=== PATIENT | male | born 1980 | race Caucasian/White ===

== ENCOUNTER 2020-05-18 07:33 | Emergency (ER) | payer BC ==
[2020-05-18 07:42] VITALS: BP 124/82; PULSE 66; RESP 18; TEMP 97.8
[2020-05-18] MEDS ORDERED: LIDOCAINE 1% INJ 10MG/ML (20 ML MDV) SQ ONE (07:53)
--- NOTE | 2020-05-18 07:55 | ED ---
Skin/Abscess/FB HPI - General Chief complaint: Skin/Abscess/Foreign Body Stated complaint: Swollen Gland Time Seen by Provider: 05/18/20 07:44 Source: patient, RN notes reviewed Mode of arrival: ambulatory Limitations: no limitations - History of Present Illness Initial comments: This a 40-year-old male presents emergency Department with chief complaint of swelling on his buttocks. Patient states he thought he had a hemorrhoid but states this was much higher and states has become more painful. He states he cannot sit on the area. Patient denies fevers chills no drainage. - Related Data Previous Rx's Medication Instructions Recorded Clindamycin HCl 300 mg PO Q6HR #40 cap 05/18/20 Ibuprofen [Motrin] 600 mg PO Q8HR PRN #20 tab 05/18/20 Allergies Allergy/AdvReac Type Severity Reaction Status Date / Time ciprofloxacin [From Cipro] Allergy Nausea & Verified 05/18/20 07:43 Vomiting sulfamethoxazole Allergy Vomiting Verified 05/18/20 07:43 [From Bactrim] trimethoprim [From Bactrim] Allergy Vomiting Verified 05/18/20 07:43 Review of Systems ROS Statement: Those systems with pertinent positive or pertinent negative responses have been documented in the HPI. ROS Other: All systems not noted in ROS Statement are negative. Past Medical History Past Medical History: No Reported History History of Any Multi-Drug Resistant Organisms: MRSA Past Surgical History: No Surgical Hx Reported Past Psychological History: Anxiety Smoking Status: Former smoker Past Alcohol Use History: None Reported Past Drug Use History: None Reported General Exam Limitations: no limitations General appearance: alert, in no apparent distress Head exam: Present: atraumatic, normocephalic, normal inspection Eye exam: Present: normal appearance, PERRL, EOMI. Absent: scleral icterus, conjunctival injection, periorbital swelling Respiratory exam: Present: normal lung sounds bilaterally. Absent: respiratory distress, wheezes, rales, rhonchi, stridor Cardiovascular Exam: Present: regular rate, normal rhythm, normal heart sounds. Absent: systolic murmur, diastolic murmur, rubs, gallop, clicks GI/Abdominal exam: Present: soft, normal bowel sounds. Absent: distended, tenderness, guarding, rebound, rigid Skin exam: Present: warm, dry, intact, normal color, other (With a cleft buttocks there is approximately 2 cm abscess firm minimal fluctuation mild erythema). Absent: rash Course Vital Signs 05/18/20 07:34 Temperature 97.8 F Pulse Rate 66 Respiratory 18 Rate Blood Pressure 124/82 O2 Sat by Pulse 98 Oximetry Procedures - Incision & Drainage Consent Obtained: written consent Site: buttock Size (cm): 2 Anesthetic Used: lidocaine 1% Amount (mLs): 7 I&D Cleaning Method: Alcohol Wipe Sterile Field Used?: No Scalpel Used: #11 I&D Drainage Obtained: Pus Culture Obtained?: Yes Patient Tolerated Procedure: well, no complications Medical Decision Making - Medical Decision Making 40-year-old presented for buttocks pain. Patient had an abscess. Patient did have an I&D with moderate drainage. Patient will be placed on antibiotics, warm compresses. Patient will have close follow-up return parameters were discussed. Disposition Clinical Impression: Abscess of buttock Disposition: HOME SELF-CARE Condition: Stable Instructions (If sedation given, give patient instructions): Abscess Incision and Drainage (DC) Additional Instructions: Please return to the Emergency Department if symptoms worsen or any other concerns. Prescriptions: Clindamycin HCl 300 mg PO Q6HR #40 cap Ibuprofen [Motrin] 600 mg PO Q8HR PRN #20 tab PRN Reason: Pain Is patient prescribed a controlled substance at d/c from ED?: No Referrals: None,Stated [Primary Care Provider] - 1-2 days Time of Disposition: 07:55
[2020-05-18] MEDS ORDERED: ACET/COD 300 MG/30 MG STARTER PACK 6 TAB BTL PO STA (08:15)
== END 2020-05-18 08:22 | disposition home or self-care (01) ==
LOC: EC 07:33
DX: L02.31 Cutaneous abscess of buttock (principal); Z88.2 Allergy status to sulfonamides; Z88.1 Allergy status to other antibiotic agents; Z86.14 Personal history of Methicillin resistant Staphylococcus aureus infection; Z87.891 Personal history of nicotine dependence
CPT/HCPCS: 87070; 87205; 99283; 10060; J2001